=== PATIENT | male | born 1990 | race African-American/Black ===

== ENCOUNTER 2016-12-31 04:00 | Emergency (ER) | payer SELFPAY ==
[2016-12-31 04:07] VITALS: BP 137/69
[2016-12-31] MEDS ORDERED: PENICILLIN V POTASSIUM 500 MG TABLET PO ONE (04:25)
--- NOTE | 2016-12-31 04:31 | ER Document Report ---
ED General - General Chief Complaint: Toothache Stated Complaint: TOOTH PAIN Time Seen by Provider: 12/31/16 04:21 Notes: Patient is a 26-year-old male presents with complaint of toothache. Pain is over the left lower premolar. He says he took it 2 days ago when eating. He has had pain since then. He has an appointment with a dentist next Monday. No fevers. No vomiting. No diarrhea. No other complaints at this time. TRAVEL OUTSIDE OF THE [place] IN LAST 30 DAYS: No - Related Data Allergies/Adverse Reactions: No Known Allergies Allergy (Unverified 06/24/15 00:08) Past Medical History - Social History Smoking Status: Never Smoker Frequency of alcohol use: None Drug Abuse: None Family History: Reviewed & Not Pertinent Patient has suicidal ideation: No Patient has homicidal ideation: No Renal/ Medical History: Denies: Hx Peritoneal Dialysis - Immunizations Immunizations up to date: Yes Hx Diphtheria, Pertussis, Tetanus Vaccination: Yes Review of Systems - Review of Systems Notes: My Normal Review Basic REVIEW OF SYSTEMS: CONSTITUTIONAL : Denies fever, chills, or sweats. Denies recent illness. EENT: Dental pain. RESPIRATORY: Denies cough, cold, or chest congestion. Denies shortness of breath, difficulty breathing, or wheezing. GASTROINTESTINAL: Denies abdominal pain. Denies nausea, vomiting, or diarrhea. Denies constipation. Last BM: SKIN: Denies rash or skin lesions. NEUROLOGICAL: Denies altered mental status or loss of consciousness. Denies headache. Denies weakness or paralysis or loss of use of either side. Denies problems with gait or speech. Denies sensory or motor loss. ALL OTHER SYSTEMS REVIEWED AND NEGATIVE. Physical Exam - Vital signs Vitals: Temp Pulse Resp BP Pulse Ox 97.9 F 58 L 18 137/69 H 99 12/31/16 04:04 12/31/16 04:04 12/31/16 04:04 12/31/16 04:04 12/31/16 04:04 - Notes Notes: General Appearance: Well nourished, alert, cooperative, no acute distress, mild obvious discomfort. Vitals: reviewed, See vital signs table. Head: no swelling or tenderness to the head Eyes: PERRL, EOMI, Conjuctiva clear Mouth: Patient has a fractured left lower premolar. There is no gingival swelling or inflammation. No facial swelling. No swelling or redness of the neck or jaw. Skin: warm, dry, appropriate color, no rash Neuro: speech clear, oriented x 3, normal affect, responds appropriately to questions. Course - Re-evaluation Re-evalutation: 12/31/16 04:49 Patient will be placed on penicillin. He is encouraged follow-up with the dentist as scheduled. He is encouraged to return to the ER immediately if he has any redness or swelling to the face or neck. He is encouraged not to eat foods that require a significant amount of chewing. Patient agrees with plan and will be discharged home. Dictation of this chart was performed using voice recognition software; therefore, there may be some unintended grammatical errors. - Vital Signs Vital signs: Temp Pulse Resp BP Pulse Ox 97.9 F 58 L 18 137/69 H 99 12/31/16 04:04 12/31/16 04:04 12/31/16 04:04 12/31/16 04:04 12/31/16 04:04 Discharge - Discharge Clinical Impression: Tooth pain Condition: Good Disposition: HOME, SELF-CARE Instructions: Penicillin V K ([facility]) Additional Instructions: You have a fractured tooth. Because of this you will have some pain. Please avoid any food that you have to chew as this will cause food to be pushed down into the tooth and could not make it more painful and also cause infection. I will place you on penicillin to help reduce chance of infection and inflammation. Please follow-up with your dentist next week as scheduled. Return to ER for facial swelling or any swelling below the jaw or have any difficulty breathing or swallowing. Take Tylenol and Motrin for pain. Prescriptions: Penicillin V Potassium [Penicillin Vk 500 mg Tablet] 500 mg PO BID #14 tablet Forms: Return to Work
== END 2016-12-31 04:40 | disposition home or self-care (01) ==
LOC: ER 04:00
DX: K08.89 Other specified disorders of teeth and supporting structures (principal)
CPT/HCPCS: 99282

== ENCOUNTER 2019-08-17 06:16 | Emergency (ER) | payer SELFPAY ==
[2019-08-17 06:25] VITALS: BP 143/71
== END 2019-08-17 08:10 | disposition left against medical advice (07) ==
LOC: ER 06:16
DX: Z53.21 Procedure and treatment not carried out due to patient leaving prior to being seen by health care provider (principal)